=== PATIENT | female | born 1955 | race Caucasian/White ===

== ENCOUNTER → 2018-01-23 16:54 | Outpatient (CLI) | payer OTHER, SELFPAY | PROVIDERS: PCP Specialist; Visit Provider Preventive Medicine Occupational Medicine | DX: R00.0 Tachycardia, unspecified (principal) | CPT/HCPCS: 93005 ==

== ENCOUNTER → 2018-01-28 08:26 | Outpatient (RCR) | payer OTHER, SELFPAY ==
[2018-01-28] MEDS: POTASSIUM CHLORIDE IV (09:02)
[2018-01-28] MEDS: SODIUM CHLORIDE 0.9% IV (09:02)
[2018-01-28 09:11] VITALS: BP 136/91; PULSE 90; RESP 18; TEMP 36.4; O2SAT 98
== END ==
LOC: ONC 08:26
PROVIDERS: PCP Specialist; Visit Provider Surgery
DX: E86.0 Dehydration (principal)
CPT/HCPCS: 96365; J3480

== ENCOUNTER → 2018-02-08 07:12 | Outpatient (CLI) | payer OTHER, SELFPAY ==
[2018-02-08 08:12] LABS: Add Manual Diff / Slide Review NO; Basophils Percent Auto 0.5 % (0-2); Eosinophils Percent Auto 0.4 % (2-4); Hemoglobin 11.9 g/dL (12.0-16.0); Lymphocytes Percent Auto 54.6 % (25-40); Mean Corpuscular HGB Conc 34.9 % (30-36); Mean Corpuscular Hemoglobin 32.7 PG (26-34); Mean Corpuscular Volume 93.5 fL (80-100); Monocytes Percent Auto 4.8 % (3-14); Neutrophils Absolute Auto 1500 /uL (3000-5900); Neutrophils Percent Auto 39.7 % (50-75); Platelet Count 207 X10^3/uL (150-400); Red Blood Cell Count 3.63 X10^6/uL (4.0-5.2); Red Cell Distribution Width 18.1 % (11.6-14.8); White Blood Cell Count 3.8 X10^3/uL (4.5-11.0)
[2018-02-08 08:36] LABS: Alanine Aminotransferase 40 IU/L (9-52); Albumin 3.9 g/dL (3.5-5.0); Albumin Globulin Ratio 1.1 (1.0-2.8); Alkaline Phosphatase 109 U/L (38-126); Aspartate Aminotransferase 31 IU/L (14-36); Bilirubin Total 0.6 mg/dL (0.2-1.3); Calcium 8.9 mg/dL (8.4-10.2); Estimated Glomerular Filt Rate > 60.0 mL/min (>60); Globulin 3.4 g/dL (1.7-4.1); Glucose 106 mg/dL (80-110); HEMOLYSIS < 15 (0-50); Potassium 3.8 mmol/L (3.4-5.1); Sodium 136 mmol/L (137-145); Total Protein 7.3 g/dL (6.3-8.2)
== END ==
PROVIDERS: Visit Provider Internal Medicine Hematology & Oncology
DX: C48.2 Malignant neoplasm of peritoneum, unspecified (principal)
CPT/HCPCS: 36415; 80053; 85025

== ENCOUNTER → 2018-02-27 10:24 | Outpatient (CLI) | payer OTHER, SELFPAY ==
[2018-02-27 11:00] LABS: Add Manual Diff / Slide Review NO; Basophils Percent Auto 0.4 % (0-2); Eosinophils Percent Auto 2.7 % (2-4); Hemoglobin 12.9 g/dL (12.0-16.0); Lymphocytes Percent Auto 36.7 % (25-40); Mean Corpuscular HGB Conc 34.1 % (30-36); Mean Corpuscular Hemoglobin 33.3 PG (26-34); Mean Corpuscular Volume 97.7 fL (80-100); Monocytes Percent Auto 5.1 % (3-14); Neutrophils Absolute Auto 4400 /uL (3000-5900); Neutrophils Percent Auto 55.1 % (50-75); Platelet Count 214 X10^3/uL (150-400); Red Blood Cell Count 3.89 X10^6/uL (4.0-5.2); Red Cell Distribution Width 20.2 % (11.6-14.8)
[2018-02-27 11:15] LABS: Alanine Aminotransferase 29 IU/L (9-52); Albumin 3.9 g/dL (3.5-5.0); Albumin Globulin Ratio 1.2 (1.0-2.8); Alkaline Phosphatase 114 U/L (38-126); Aspartate Aminotransferase 18 IU/L (14-36); BUN Creatinine Ratio 21.7 (6-22); Bilirubin Total 0.6 mg/dL (0.2-1.3); Blood Urea Nitrogen 13 mg/dL (7-17); Carbon Dioxide 28 mmol/L (22-32); Chloride 102 mmol/L (98-107); Estimated Glomerular Filt Rate > 60.0 mL/min (>60); Globulin 3.3 g/dL (1.7-4.1); Glucose 96 mg/dL (80-110); HEMOLYSIS < 15 (0-50); Sodium 140 mmol/L (137-145); Total Protein 7.2 g/dL (6.3-8.2)
[2018-02-27 11:42] LABS: Cancer Antigen 125 66 U/mL (0-35)
[2018-02-27 12:07] LABS: Anisocytosis 3+; Macrocytosis 1+
[2018-02-27 12:08] LABS: Stomatocytes 1+
== END ==
PROVIDERS: PCP Specialist; Visit Provider Internal Medicine Hematology & Oncology
DX: C48.2 Malignant neoplasm of peritoneum, unspecified (principal)
CPT/HCPCS: 36415; 80053; 85025; 86304

== ENCOUNTER → 2018-03-08 11:07 | Outpatient (CLI) | payer OTHER, SELFPAY ==
[2018-03-08 12:16] LABS: Add Manual Diff / Slide Review NO; Basophils Percent Auto 0.5 % (0-2); Eosinophils Percent Auto 2.9 % (2-4); Hematocrit 36.2 % (36-46); Hemoglobin 12.4 g/dL (12.0-16.0); Mean Corpuscular HGB Conc 34.3 % (30-36); Mean Corpuscular Hemoglobin 33.9 PG (26-34); Mean Corpuscular Volume 98.8 fL (80-100); Monocytes Percent Auto 3.5 % (3-14); Neutrophils Absolute Auto 4100 /uL (3000-5900); Neutrophils Percent Auto 52.1 % (50-75); Platelet Count 223 X10^3/uL (150-400); Red Blood Cell Count 3.66 X10^6/uL (4.0-5.2); Red Cell Distribution Width 19.4 % (11.6-14.8); White Blood Cell Count 7.9 X10^3/uL (4.5-11.0)
[2018-03-08 12:20] LABS: Alanine Aminotransferase 26 IU/L (9-52); Albumin Globulin Ratio 1.3 (1.0-2.8); Alkaline Phosphatase 106 U/L (38-126); Aspartate Aminotransferase 18 IU/L (14-36); BUN Creatinine Ratio 28.3 (6-22); Bilirubin Total 0.5 mg/dL (0.2-1.3); Blood Urea Nitrogen 17 mg/dL (7-17); Calcium 9.2 mg/dL (8.4-10.2); Carbon Dioxide 29 mmol/L (22-32); Chloride 100 mmol/L (98-107); Estimated Glomerular Filt Rate > 60.0 mL/min (>60); Globulin 3.1 g/dL (1.7-4.1); Glucose 95 mg/dL (80-110); HEMOLYSIS < 15 (0-50); Potassium 4.2 mmol/L (3.4-5.1); Sodium 138 mmol/L (137-145); Total Protein 7.1 g/dL (6.3-8.2)
== END ==
PROVIDERS: PCP Specialist; Visit Provider Internal Medicine Hematology & Oncology
DX: C48.2 Malignant neoplasm of peritoneum, unspecified (principal)
CPT/HCPCS: 36415; 80053; 85025

== ENCOUNTER → 2018-03-15 07:15 | Outpatient (CLI) | payer OTHER, SELFPAY ==
[2018-03-15 09:01] LABS: Add Manual Diff / Slide Review NO; Basophils Percent Auto 0.4 % (0-2); Eosinophils Percent Auto 1.8 % (2-4); Hematocrit 35.5 % (36-46); Hemoglobin 12.4 g/dL (12.0-16.0); Lymphocytes Percent Auto 26.3 % (25-40); Mean Corpuscular Hemoglobin 34.7 PG (26-34); Mean Corpuscular Volume 99.2 fL (80-100); Monocytes Percent Auto 5.1 % (3-14); Neutrophils Absolute Auto 6500 /uL (3000-5900); Neutrophils Percent Auto 66.4 % (50-75); Platelet Count 178 X10^3/uL (150-400); Red Blood Cell Count 3.58 X10^6/uL (4.0-5.2); Red Cell Distribution Width 18.4 % (11.6-14.8); White Blood Cell Count 9.8 X10^3/uL (4.5-11.0)
[2018-03-15 09:44] LABS: Alanine Aminotransferase 43 IU/L (9-52); Albumin 3.9 g/dL (3.5-5.0); Albumin Globulin Ratio 1.3 (1.0-2.8); Alkaline Phosphatase 112 U/L (38-126); Aspartate Aminotransferase 32 IU/L (14-36); BUN Creatinine Ratio 17.1 (6-22); Bilirubin Total 0.8 mg/dL (0.2-1.3); Blood Urea Nitrogen 12 mg/dL (7-17); Calcium 8.9 mg/dL (8.4-10.2); Carbon Dioxide 28 mmol/L (22-32); Chloride 100 mmol/L (98-107); Estimated Glomerular Filt Rate > 60.0 mL/min (>60); Glucose 94 mg/dL (80-110); HEMOLYSIS < 15 (0-50); Potassium 3.8 mmol/L (3.4-5.1); Sodium 139 mmol/L (137-145); Total Protein 6.9 g/dL (6.3-8.2)
== END ==
PROVIDERS: PCP Specialist; Visit Provider Internal Medicine Hematology & Oncology
DX: C48.2 Malignant neoplasm of peritoneum, unspecified (principal)
CPT/HCPCS: 36415; 80053; 85025

== ENCOUNTER → 2018-07-12 07:19 | Outpatient (CLI) | payer OTHER, SELFPAY ==
[2018-07-12 08:14] LABS: Add Manual Diff / Slide Review NO; Basophils Percent Auto 0.3 % (0-2); Eosinophils Percent Auto 2.5 % (2-4); Hematocrit 39.1 % (36-46); Hemoglobin 13.2 g/dL (12.0-16.0); Mean Corpuscular HGB Conc 33.9 % (30-36); Mean Corpuscular Hemoglobin 34.2 PG (26-34); Monocytes Percent Auto 3.1 % (3-14); Neutrophils Absolute Auto 3900 /uL (3000-5900); Neutrophils Percent Auto 51.1 % (50-75); Platelet Count 202 X10^3/uL (150-400); Red Blood Cell Count 3.87 X10^6/uL (4.0-5.2); Red Cell Distribution Width 12.9 % (11.6-14.8); White Blood Cell Count 7.7 X10^3/uL (4.5-11.0)
[2018-07-12 08:41] LABS: Alanine Aminotransferase 28 IU/L (9-52); Albumin 4.1 g/dL (3.5-5.0); Albumin Globulin Ratio 1.4 (1.0-2.8); Alkaline Phosphatase 102 U/L (38-126); Aspartate Aminotransferase 18 IU/L (14-36); BUN Creatinine Ratio 24.3 (6-22); Bilirubin Total 0.6 mg/dL (0.2-1.3); Blood Urea Nitrogen 17 mg/dL (7-17); Calcium 9.3 mg/dL (8.4-10.2); Carbon Dioxide 29 mmol/L (22-32); Chloride 100 mmol/L (98-107); Estimated Glomerular Filt Rate > 60.0 mL/min (>60); Glucose 101 mg/dL (80-110); HEMOLYSIS < 15 (0-50); Potassium 4.3 mmol/L (3.4-5.1); Sodium 140 mmol/L (137-145); Total Protein 7.1 g/dL (6.3-8.2)
== END ==
PROVIDERS: PCP Specialist; Visit Provider Internal Medicine Hematology & Oncology
DX: C48.2 Malignant neoplasm of peritoneum, unspecified (principal)
CPT/HCPCS: 36415; 80053; 85025

== ENCOUNTER → 2018-07-19 07:31 | Outpatient (CLI) | payer OTHER, SELFPAY ==
[2018-07-19 08:33] LABS: Add Manual Diff / Slide Review NO; Basophils Percent Auto 0.4 % (0-2); Eosinophils Percent Auto 1.5 % (2-4); Hemoglobin 12.4 g/dL (12.0-16.0); Lymphocytes Percent Auto 48.8 % (25-40); Mean Corpuscular HGB Conc 34.4 % (30-36); Mean Corpuscular Hemoglobin 34.4 PG (26-34); Monocytes Percent Auto 3.9 % (3-14); Neutrophils Absolute Auto 2500 /uL (3000-5900); Neutrophils Percent Auto 45.4 % (50-75); Platelet Count 177 X10^3/uL (150-400); White Blood Cell Count 5.5 X10^3/uL (4.5-11.0)
[2018-07-19 08:41] LABS: Alanine Aminotransferase 20 IU/L (9-52); Albumin Globulin Ratio 1.3 (1.0-2.8); Alkaline Phosphatase 94 U/L (38-126); Aspartate Aminotransferase 23 IU/L (14-36); BUN Creatinine Ratio 21.7 (6-22); Bilirubin Total 0.5 mg/dL (0.2-1.3); Blood Urea Nitrogen 13 mg/dL (7-17); Calcium 8.3 mg/dL (8.4-10.2); Carbon Dioxide 24 mmol/L (22-32); Chloride 105 mmol/L (98-107); Estimated Glomerular Filt Rate > 60.0 mL/min (>60); Globulin 3.1 g/dL (1.7-4.1); Glucose 101 mg/dL (80-110); HEMOLYSIS 32 (0-50); Sodium 139 mmol/L (137-145); Total Protein 7.1 g/dL (6.3-8.2)
== END ==
PROVIDERS: PCP Specialist; Visit Provider Internal Medicine Hematology & Oncology
DX: C48.2 Malignant neoplasm of peritoneum, unspecified (principal)
CPT/HCPCS: 36415; 80053; 85025

== ENCOUNTER → 2018-07-23 11:36 | Outpatient (CLI) | payer OTHER, SELFPAY ==
--- NOTE | 2018-07-23 11:28 | DI.US.S_ITS ---
PROCEDURE: US PERIPH VENOUS UP EXTREM LT INDICATIONS: possible clot TECHNIQUE: Real-time imaging, as well as color and pulse Doppler interrogation, was performed of the left upper extremity upper extremity deep veins from the inferior neck to the antecubital fossa. COMPARISON: None. FINDINGS: The internal jugular vein, visualized portions of the subclavian vein, axillary, and brachial veins are free of intraluminal thrombus. Where physically possible, the veins are normally compressible. Color and pulse Doppler demonstrate normal intraluminal flow, with expected phasicity and pulsatility. Additional scanning of the cephalic and basilic veins of the superficial system demonstrate normal compressibility, without thrombus. IMPRESSION: No DVT found. Dictated by: Bill Burgess M.D. on 07/23/2018 at 12:42 Approved by: Bill Burgess M.D. on 07/23/2018 at 12:47
== END ==
PROVIDERS: PCP Specialist; Visit Provider Surgery
DX: Z45.2 Encounter for adjustment and management of vascular access device (principal); R07.9 Chest pain, unspecified; R60.9 Edema, unspecified
CPT/HCPCS: 93971

== ENCOUNTER 2019-03-10 06:52 | Day surgery (SDC) | payer OTHER, SELFPAY ==
[2019-02-23 08:03] VITALS: BMI 28.3
[2019-03-10 07:05] VITALS: BP 144/90; PULSE 90; RESP 15; TEMP 36.2; O2SAT 95; BMI 28.3
[2019-03-10] MEDS: LACTATED RINGERS 1,000 ML 100 ML IV (07:25)
--- NOTE | 2019-03-10 07:46 | PM.HP.1 ---
History of Present Illness Date Patient Seen: 03/10/19 Time Patient Seen: 07:46 Chief complaint: [id number] Narrative: The patient the patient is a woman who is post treatment of a [employer] malignancy. She no longer requires the use of a Port-A-Cath. She is here for removal. Patient History Medical History (Updated 03/10/19 @ 07:48 by Ronal Fung MD) Breast cancer, right (Acute) Cerebral arterial aneurysm (Acute ~2010) Former smoker (Acute) H/O: hysterectomy (Acute ~1993) Irregular heartbeat (Acute) Ovarian cancer (Acute) Pneumonia (Acute ~2013) Port-A-Cath in place (Acute) Surgical History Hx of cone biopsy of cervix (Acute ~1989) Hx of right mastectomy (Acute ~1993) Social History household members: spouse Smoking Status: Former smoker alcohol intake: current Family & Social History Social History: household members spouse Tobacco & Substance use: Tobacco type cigarettes Smoking Status Former smoker alcohol intake current Substance Use Type does not use Meds Home Medications Medication Instructions Recorded Confirmed Type No Known Home Medications 03/10/19 03/10/19 History Allergies Allergy/AdvReac Type Severity Reaction Status Date / Time Iodinated Contrast- Oral and Allergy Severe Anaphylaxis Verified 03/10/19 07:26 IV Dye coconut [COCONUT] Allergy Unknown Hives, Unverified 03/10/19 07:26 itching shellfish derived Allergy Unknown Hives, Verified 03/10/19 07:26 itching Exam Vital Signs (past 8 hours): - 03/10/19 07:05 Temperature 97.2 F L Pulse Rate 90 Respiratory Rate 15 Blood Pressure 144/90 H Pulse Oximetry 95 Oxygen Delivery Method Room Air Narrative Exam Narrative: Pleasant cooperative patient no apparent distress. Lungs are clear to auscultation. No rales or rhonchi. Heart regular rate and rhythm no murmur gallop. . Patient is alert and oriented x3. Assessment & Plan Assessment & Plan narrative: For Port-A-Cath removal. I have discussed the risks and benefits. Excess she may have a divot. All questions answered.
--- NOTE | 2019-03-10 07:49 | P.HP_ITS ---
History of Present Illness Date Patient Seen: 03/10/19 Time Patient Seen: 07:46 Chief complaint: [id number] Narrative: The patient the patient is a woman who is post treatment of a [employer] malignancy. She no longer requires the use of a Port-A-Cath. She is here for removal. Patient History Medical History (Updated 03/10/19 @ 07:48 by Ronal Fung MD) Breast cancer, right (Acute) Cerebral arterial aneurysm (Acute ~2010) Former smoker (Acute) H/O: hysterectomy (Acute ~1993) Irregular heartbeat (Acute) Ovarian cancer (Acute) Pneumonia (Acute ~2013) Port-A-Cath in place (Acute) Surgical History Hx of cone biopsy of cervix (Acute ~1989) Hx of right mastectomy (Acute ~1993) Social History household members: spouse Smoking Status: Former smoker alcohol intake: current Family & Social History Social History: household members spouse Tobacco & Substance use: Tobacco type cigarettes Smoking Status Former smoker alcohol intake current Substance Use Type does not use Meds Home Medications Medication Instructions Recorded Confirmed Type No Known Home Medications 03/10/19 03/10/19 History Allergies Allergy/AdvReac Type Severity Reaction Status Date / Time Iodinated Contrast- Oral and Allergy Severe Anaphylaxis Verified 03/10/19 07:26 IV Dye coconut [COCONUT] Allergy Unknown Hives, Unverified 03/10/19 07:26 itching shellfish derived Allergy Unknown Hives, Verified 03/10/19 07:26 itching Exam Vital Signs (past 8 hours): - 03/10/19 07:05 Temperature 97.2 F L Pulse Rate 90 Respiratory Rate 15 Blood Pressure 144/90 H Pulse Oximetry 95 Oxygen Delivery Method Room Air Narrative Exam Narrative: Pleasant cooperative patient no apparent distress. Lungs are clear to auscultation. No rales or rhonchi. Heart regular rate and rhythm no murmur gallop. . Patient is alert and oriented x3. Assessment & Plan Assessment & Plan narrative: For Port-A-Cath removal. I have discussed the risks and benefits. Excess she may have a divot. All questions answered.
--- NOTE | 2019-03-10 07:49 | PM.PREOP ---
Pre-operative Note Interval Note History & Physical reviewed/Exam performed by Physician: Yes Changes to H&P: No
[2019-03-10] MEDS: CEFAZOLIN 2 GM/100 ML FROZ.PIGGY IV (07:55)
--- NOTE | 2019-03-10 08:10 | SUR.OPER ---
Supine on padded OR bed, head on pillow, arm padded and tucked at operative side, legs uncrossed, safety belt at thigh, tape over blanket over lower legs .
[2019-03-10] MEDS: BUPIVACAINE 0.5% (PF) VIAL 30 ML INJ (08:17)
[2019-03-10 08:31] VITALS: BP 124/77; PULSE 87; RESP 14; TEMP 36; O2SAT 96
[2019-03-10 08:36] VITALS: BP 114/66; PULSE 81; RESP 12; O2SAT 95
[2019-03-10 08:41] VITALS: BP 111/70; PULSE 77; RESP 11; TEMP 36.1; O2SAT 94
[2019-03-10 08:46] VITALS: BP 139/81; PULSE 86; RESP 17; TEMP 36.1; O2SAT 94
--- NOTE | 2019-03-10 08:47 | SUR.PHASEI ---
surgical dressing on left chest observed to be c/d/i.
--- NOTE | 2019-03-10 08:49 | PM.OP.1 ---
Operative Date/Time/Diagnoses Date of procedure: 03/10/19 Time of procedure: 08:28 Pre-op diagnosis: Ovarian cancer post chemotherapy Post-op diagnosis: same Procedure & Clinicians Procedure: Removal of Port-A-Cath Same procedure as scheduled: Yes Indications: Patient has a port that is no longer in use. Request made for removal. Surgeon: Ronal Fung Click Yes if Unassisted: Yes Anesthesia Type: General Operative Notes Findings: Port removed intact Closure Type: primary Specimen(s): none sent Estimated Blood Loss (mL): 5 Blood products transfused: none Procedure in detail: The patient was placed supine on the operating room table and underwent general LMA anesthesia. She was prepped and draped in the usual fashion. Local anesthetic was infiltrated in a field block fashion around the port. incision was made through the insertion scar. It was carried down to the level the port. The port was dissected out from surrounding tissue. A U-stitch was placed around the catheters tract. The port was removed in the stitch tied down closing off the tract. Three 0 Vicryl was used to close the subcu and 4 0 running Vicryl subcuticular stitch is used to close the skin. Mastisol and Steri-Strips and dressing was applied. The patient was extubated after wakening and taken to recovery room good condition Complications: none Condition: stable Disposition: PACU
[2019-03-10 08:51] VITALS: BP 139/79; PULSE 80; RESP 16; TEMP 36.1; O2SAT 97
--- NOTE | 2019-03-10 09:17 | SUR.PHASEII ---
0850: I noticed that the patient had not signed her consent. I reported this to my marketing sales manager, Jackie. Jackie told me to ask the spouse if he would sign her consent which he did. Both pt and spouse are aware that the consent was not signed before the procedure.
== END 2019-03-10 09:22 | disposition home or self-care (01) ==
PROVIDERS: Visit Provider Specialist
PROC: (CPT 36590; principal; 2019-03-10 07:45)
DX: Z45.2 Encounter for adjustment and management of vascular access device (principal); Z85.43 Personal history of malignant neoplasm of ovary
CPT/HCPCS: 36590; J0690; J1100; J2405; J2704; J3010

== ENCOUNTER → 2021-06-25 14:53 | Outpatient (CLI) | payer OTHER, SELFPAY ==
--- NOTE | 2021-06-25 14:58 | DI.RAD.S_ITS ---
PROCEDURE: XR THORACIC SPINE 2V INDICATIONS: THORACIC PAIN TECHNIQUE: 3 views of the thoracic spine were acquired. COMPARISON: None. FINDINGS: Bones: No fractures or dislocations. No suspicious bony lesions. 12 pairs of ribs are noted, and appear intact where visualized. Multilevel degenerative disc space narrowing is present. Non bridging anterior osteophytes are present predominantly within the lower thoracic spine. Soft tissues: No paravertebral stripe thickening. IMPRESSION: Degenerative changes as above. Dictated by: Annbael Nicole M.D. on 06/25/2021 at 16:21 Approved by: Annabel Nicole M.D. on 06/25/2021 at 16:21
--- NOTE | 2021-06-25 14:58 | DI.RAD.S_ITS ---
PROCEDURE: XR LUMBAR SPINE 2-3V INDICATIONS: LOW BACK PAIN TECHNIQUE: 3 views of the lumbar spine were acquired. COMPARISON: None. FINDINGS: Bones: 5 [id number] vertebrae are present. There is normal bony alignment. Moderate to severe disc space narrowing throughout the lumbar spine most notable at L5-S1. Moderate to severe disc space narrowing is present at L4-5 and severe at L5-S1. Anterior osteophytes are present most prominent from L2 through L5. No vertebral body compression fractures. No suspicious bony lesions. Soft tissues: Overlying bowel gas pattern is normal. No suspicious soft tissue calcifications. IMPRESSION: Degenerative changes most notable at L5-S1. Dictated by: Annabel Nicole M.D. on 06/25/2021 at 16:20 Approved by: Annabel Nicole M.D. on 06/25/2021 at 16:20
== END ==
PROVIDERS: PCP Naturopath; Referring Provider Family Medicine; Visit Provider Family Medicine
DX: M54.50 Low back pain, unspecified (principal); M54.6 Pain in thoracic spine; M47.817 Spondylosis without myelopathy or radiculopathy, lumbosacral region; M48.04 Spinal stenosis, thoracic region; M62.838 Other muscle spasm; M99.02 Segmental and somatic dysfunction of thoracic region; M99.03 Segmental and somatic dysfunction of lumbar region; M99.04 Segmental and somatic dysfunction of sacral region; M99.05 Segmental and somatic dysfunction of pelvic region; M99.09 Segmental and somatic dysfunction of abdomen and other regions
CPT/HCPCS: 72070; 72100

== ENCOUNTER → 2021-07-30 13:20 | Outpatient (CLI) | payer OTHER, SELFPAY ==
[2021-07-30 14:26] LABS: Add Manual Diff / Slide Review NO; Basophils Absolute Auto 0 /uL (0-100); Basophils Percent Auto 0.2 % (0-2); Eosinophils Absolute Auto 200 /uL (0-450); Eosinophils Percent Auto 2.1 % (2-4); Hemoglobin 13.8 g/dL (12.0-16.0); Lymphocytes Absolute Auto 2700 /uL (1100-4500); Lymphocytes Percent Auto 30.8 % (25-40); Mean Corpuscular HGB Conc 34.4 % (30-36); Mean Corpuscular Hemoglobin 31.4 PG (26-34); Mean Corpuscular Volume 91.3 fL (80-100); Monocytes Absolute Auto 500 /uL (0-900); Monocytes Percent Auto 6.1 % (3-14); Neutrophils Absolute Auto 5200 /uL (1500-7000); Neutrophils Percent Auto 60.8 % (50-75); Platelet Count 296 X10^3/uL (150-400); Red Blood Cell Count 4.38 X10^6/uL (4.0-5.2); Red Cell Distribution Width 13.6 % (11.6-14.8); White Blood Cell Count 8.6 X10^3/uL (4.5-11.0)
[2021-07-30 14:36] LABS: Alanine Aminotransferase 16 IU/L (<35); Albumin 4.5 g/dL (3.5-5.0); Albumin Globulin Ratio 1.2 (1.0-2.8); Alkaline Phosphatase 117 U/L (38-126); Aspartate Aminotransferase 34 IU/L (14-36); Bilirubin Total 0.4 mg/dL (0.2-1.3); Blood Urea Nitrogen 9 mg/dL (7-17); Calcium 9.5 mg/dL (8.4-10.2); Carbon Dioxide 25 mmol/L (22-32); Chloride 101 mmol/L (98-107); Estimated Glomerular Filt Rate > 60.0 mL/min (>60); Globulin 3.8 g/dL (1.7-4.1); Glucose 127 mg/dL (80-110); HEMOLYSIS < 15 (0-50); Potassium 3.7 mmol/L (3.4-5.1); Sodium 138 mmol/L (137-145); Total Protein 8.3 g/dL (6.3-8.2)
[2021-07-30 14:38] LABS: High Sensitivity CRP - Cardiac 3.3 mg/L (1.0-3.0)
[2021-07-30 14:39] LABS: Hemoglobin A1C% w Est Avg Glu 5.5 % (4.0-6.0)
[2021-07-30 15:04] LABS: Cancer Antigen 125 340 U/mL (0-35)
[2021-07-30 15:08] LABS: Free T3, Triiodothyronine Free 3.47 pg/mL (2.77-5.27); Free T4, Direct Thyroxine 1.11 ng/dL (0.78-2.19)
[2021-07-30 15:21] LABS: Thyroid Stimulating Hormone 2.95 uIU/mL (0.47-4.68)
[2021-07-30 16:36] LABS: Ferritin 78 ng/mL (11-264)
[2021-07-31 06:34] LABS: Thyroid Peroxidase Antibodies <8 IU/mL (0-34); Triiodothyronine T3 Total 132 ng/dL (71-180)
[2021-07-31 14:35] LABS: Anti Thyroglobulin Antibody <1.0 IU/mL (0.0-0.9)
[2021-08-03 17:33] LABS: Triiodothyronine T3 Reverse 28.4 ng/dL (9.2-24.1)
[2021-08-04 10:25] LABS: Magnesium, RBC 4.2 mg/dL (4.2-6.8)
== END ==
PROVIDERS: PCP Naturopath; Referring Provider Naturopath; Visit Provider Naturopath
DX: Z00.00 Encounter for general adult medical examination without abnormal findings (principal); N95.8 Other specified menopausal and perimenopausal disorders; K02.9 Dental caries, unspecified; I95.1 Orthostatic hypotension; G43.119 Migraine with aura, intractable, without status migrainosus; M75.00 Adhesive capsulitis of unspecified shoulder
CPT/HCPCS: 36415; 80053; 82542; 82627; 82728; 83036; 83735; 84436; 84439; 84443; 84479; 84480; 84481; 84482; 85025; 86140; 86304; 86376; 86800

== ENCOUNTER → 2023-09-29 12:08 | Outpatient (CLI) | payer MEDICARE, OTHER, SELFPAY ==
[2023-09-29 13:17] LABS: Add Manual Diff / Slide Review NO; Basophils Absolute Auto 100 /uL (0-100); Eosinophils Absolute Auto 200 /uL (0-450); Eosinophils Percent Auto 3.1 % (2-4); Hematocrit 34.4 % (36-46); Hemoglobin 11.6 g/dL (12.0-16.0); Lymphocytes Absolute Auto 1000 /uL (1100-4500); Lymphocytes Percent Auto 15.8 % (25-40); Mean Corpuscular HGB Conc 33.7 % (30-36); Monocytes Absolute Auto 500 /uL (0-900); Monocytes Percent Auto 7.8 % (3-14); Neutrophils Absolute Auto 4500 /uL (1500-7000); Neutrophils Percent Auto 72.3 % (50-75); Platelet Count 417 X10^3/uL (150-400); Red Blood Cell Count 3.62 X10^6/uL (4.0-5.2); Red Cell Distribution Width 14.9 % (11.6-14.8); White Blood Cell Count 6.3 X10^3/uL (4.5-11.0)
[2023-09-29 13:44] LABS: Alanine Aminotransferase 24 IU/L (<35); Albumin 3.6 g/dL (3.5-5.0); Albumin Globulin Ratio 0.8 (1.0-2.8); Alkaline Phosphatase 565 U/L (38-126); Aspartate Aminotransferase 49 IU/L (14-36); BUN Creatinine Ratio 17.8 (6-22); Bilirubin Total 0.9 mg/dL (0.2-1.3); Blood Urea Nitrogen 16 mg/dL (7-17); Calcium 9.4 mg/dL (8.4-10.2); Carbon Dioxide 27 mmol/L (22-32); Chloride 89 mmol/L (98-107); Cholesterol 203 mg/dL (140-199); Estimated Glomerular Filt Rate > 60 mL/min (>60); Globulin 4.4 g/dL (1.7-4.1); Glucose 89 mg/dL (80-110); HDL Cholesterol 46 mg/dL (40-60); HEMOLYSIS < 15 (0-50); LDL Cholesterol Calculated 126 mg/dL (<100); Potassium 3.8 mmol/L (3.4-5.1); Sodium 128 mmol/L (137-145); Triglycerides 157 mg/dL (35-150)
[2023-09-29 14:10] LABS: TSH w/ Reflex to FT4 5.46 uIU/mL (0.47-4.68)
[2023-09-29 14:42] LABS: Free T4, Direct Thyroxine 2.09 ng/dL (0.78-2.19)
[2023-09-29 14:56] LABS: Cancer Antigen 125 1880 U/mL (0-35)
== END ==
LOC: LAB 12:10
PROVIDERS: PCP Family Medicine; Referring Provider Family Medicine; Visit Provider Family Medicine
DX: R63.4 Abnormal weight loss (principal); C56.9 Malignant neoplasm of unspecified ovary; C50.911 Malignant neoplasm of unspecified site of right female breast; R97.1 Elevated cancer antigen 125 [CA 125]
CPT/HCPCS: 36415; 80053; 80061; 84439; 84443; 85025; 86304